=== PATIENT | female | born 1980 | race Two or more races ===

== ENCOUNTER 2019-02-25 19:55 | Emergency (ER) | payer BC ==
[~2019-02-25] VITALS: Ht 157.5 cm; Wt 56.2 kg
[2019-02-25 20:07] VITALS: BP 123/73
== END 2019-02-25 21:28 | disposition home or self-care (01) ==
LOC: ER 20:03
DX: L02.01 Cutaneous abscess of face (principal); L72.0 Epidermal cyst; Z98.890 Other specified postprocedural states
CPT/HCPCS: 99283; A6402; A6403